=== PATIENT | male | born 1945 | race Caucasian/White ===

== ENCOUNTER 2017-01-15 17:13 | Inpatient (IN) | payer OTHER, MEDICAID ==
[~2017-01-15] VITALS: Ht 185.4 cm; Wt 106.3 kg
[2017-01-15 18:29] VITALS: BP_SYST 143
[2017-01-15] MEDS ORDERED: MV-M1TAB39 PO (19:25)
[2017-01-15] MEDS ORDERED: HYDR-4100 PO (19:25)
[2017-01-15] MEDS ORDERED: VITA-219 PO (19:25)
[2017-01-15] MEDS ORDERED: DICLOFENAC 1% (19:25)
[2017-01-15] MEDS ORDERED: OMEG300C3 PO (19:25)
[2017-01-15] MEDS ORDERED: VITA1CAP PO (19:25)
[2017-01-15] MEDS ORDERED: TRAZ-123 PO (19:25)
[2017-01-15] MEDS ORDERED: SERT50TA12 PO (19:25)
[2017-01-15] MEDS ORDERED: FERR-57 PO (19:25)
[2017-01-15] MEDS ORDERED: VITD2000 PO (19:25)
[2017-01-15] MEDS ORDERED: DIVA500T7 PO (19:25)
[2017-01-15] MEDS ORDERED: MULT PO (19:25)
[2017-01-15] MEDS ORDERED: DICL100G16 TP (19:25)
[2017-01-15] MEDS ORDERED: MEMA5TAB PO (19:25)
[2017-01-15 20:00] VITALS: BP_SYST 141
[2017-01-15 20:12] LABS: BASOPHILS % (AUTO) 0.3 % (0.0-2.0); EOSINOPHILS # (AUTO) 0.1 K/uL (0.0-0.4); EOSINOPHILS % (AUTO) 1.1 % (0.0-4.0); HEMATOCRIT 42.1 % (36-54); HEMOGLOBIN 13.8 g/dL (14.0-18.0); MEAN CORPUSCULAR HEMOGLOBIN 29 pg (27-31); MEAN CORPUSCULAR HGB CONC 33 % (32-36); MEAN CORPUSCULAR VOLUME 89 fL (79.0-98.0); MONOCYTES # (AUTO) 0.7 K/uL (0.0-1.0); MONOCYTES % (AUTO) 12.3 % (1.7-9.3); NEUTROPHILS # (AUTO) 1.5 K/uL (1.8-7.7); NEUTROPHILS % (AUTO) 28.3 % (40.0-70.0); PLATELET COUNT (AUTO) 174 K/uL (130-430); RED BLOOD CELL COUNT(AUTO) 4.72 MIL/uL (4.2-6.2); RED CELL DISTRIBUTION WIDTH 18.2 % (9.0-15.0); WHITE BLOOD COUNT (AUTO) 5.4 K/uL (4.8-10.8)
[2017-01-15 20:24] LABS: LIPASE 109 U/L (73-393); THYROID STIMULATING HORMONE 1.28 uIu/mL (0.36-3.74)
[2017-01-15 20:31] LABS: SODIUM SERUM 147 mmol/L (136-145)
[2017-01-15 20:59] LABS: BILIRUBIN,URINE NEGATIVE (NEGATIVE); BLOOD, URINE NEGATIVE (NEGATIVE); CLARITY/URINE CLEAR (CLEAR); COLOR,URINE YELLOW (YELLOW); GLUCOSE,URINE NEGATIVE (NEGATIVE); KETONES,URINE 1+ (NEGATIVE); LEUKOCYTE ESTERASE ,URINE NEGATIVE (NEGATIVE); NITRITE, URINE NEGATIVE (NEGATIVE); PROTEIN URINE NEGATIVE (NEGATIVE)
[2017-01-15] MEDS ORDERED: DICLOFENAC 1% GEL PO SCH (21:30)
[2017-01-15] MEDS ORDERED: LEVOFLOXACIN 500 MG/D5W 100 ML IV ONE (21:33)
[2017-01-15] MEDS: LEVOFLOXACIN 500 MG/D5W 100 ML IV SCH (22:26)
[2017-01-16] MEDS: D5/0.45 NS 1,000 ML IV SCH ×2 (01:02→17:53)
[2017-01-16 02:54] VITALS: BP_SYST 129
[2017-01-16 08:30] VITALS: BP_SYST 127
[2017-01-16] MEDS: VITAMIN E 1,000 UNIT CAPSULE PO SCH (09:00)
[2017-01-16 12:37] VITALS: BP_SYST 133; BP_SYST 150
[2017-01-16] MEDS: VITAMIN B COMPLEX 1 CAP/TAB PO SCH (13:21)
[2017-01-16] MEDS: MEMANTINE HCL 5 MG TABLET PO SCH (13:21)
[2017-01-16] MEDS: MULTIVITAMINS TAB 1 TABLET PO SCH (13:21)
[2017-01-16] MEDS: SERTRALINE HCL 50 MG TABLET PO SCH (13:21)
[2017-01-16] MEDS: CHOLECALCIFEROL (VITAMIN D3) 2,000 UNIT TABLET PO SCH (13:21)
[2017-01-16] MEDS: FERROUS SULFATE 325 MG TABLET.DR PO SCH (13:21)
[2017-01-16] MEDS: traZODone HCL 50 MG TABLET (DESYREL) PO SCH (13:21)
[2017-01-16] MEDS: HYDROcodone/ACETAMIN 10-325 MG TAB PO SCH ×4 (13:22→21:05)
[2017-01-16] MEDS: DIVALPROEX SODIUM 500 MG TABLET( DEPAKOTE) PO SCH (13:23)
[2017-01-16] MEDS: ENOXAPARIN SODIUM 40 MG/0.4 ML SYRINGE SUBCUT SCH (13:23)
[2017-01-16 16:20] VITALS: BP_SYST 108; BP_SYST 111
[2017-01-16 19:49] VITALS: BP_SYST 138
[2017-01-16] MEDS ORDERED: traZODone HCL 50 MG TABLET (DESYREL) PO ONE (21:45)
[2017-01-16] MEDS: LEVOFLOXACIN 500 MG/D5W 100 ML IV SCH (22:25)
[2017-01-17 00:49] VITALS: BP_SYST 105
[2017-01-17 04:46] VITALS: BP_SYST 97
[2017-01-17 07:35] VITALS: BP_SYST 102
[2017-01-17] MEDS: MEMANTINE HCL 5 MG TABLET PO SCH ×2 (08:38→21:54)
[2017-01-17] MEDS: VITAMIN B COMPLEX 1 CAP/TAB PO SCH (08:38)
[2017-01-17] MEDS: HYDROcodone/ACETAMIN 10-325 MG TAB PO SCH ×4 (08:38→21:56)
[2017-01-17] MEDS: FERROUS SULFATE 325 MG TABLET.DR PO SCH (08:38)
[2017-01-17] MEDS: SERTRALINE HCL 50 MG TABLET PO SCH (08:39)
[2017-01-17] MEDS: DIVALPROEX SODIUM 500 MG TABLET( DEPAKOTE) PO SCH (08:39)
[2017-01-17] MEDS: CHOLECALCIFEROL (VITAMIN D3) 2,000 UNIT TABLET PO SCH (08:39)
[2017-01-17] MEDS: MULTIVITAMINS TAB 1 TABLET PO SCH (08:40)
[2017-01-17] MEDS: ENOXAPARIN SODIUM 40 MG/0.4 ML SYRINGE SUBCUT SCH (08:40)
[2017-01-17] MEDS: traZODone HCL 50 MG TABLET (DESYREL) PO SCH (08:49)
[2017-01-17] MEDS: VITAMIN E 1,000 UNIT CAPSULE PO SCH (09:00)
[2017-01-17 11:06] LABS: INR 1.1 (0.80-1.20); PROTHROMBIN TIME 11.6 SECS (9.5-12.5)
[2017-01-17 11:07] LABS: ALBUMIN 2.8 g/dL (3.4-4.8); BILIRUBIN,DIRECT 0.2 mg/dL (0.0-0.3); TOTAL BILIRUBIN 0.4 mg/dL (0.0-1.0)
[2017-01-17 11:10] LABS: HEPATITIS C VIRUS AB <0.1 s/co ratio (0.0-0.9)
[2017-01-17 12:30] VITALS: BP_SYST 109
[2017-01-17] MEDS: D5/0.45 NS 1,000 ML IV SCH (13:32)
[2017-01-17] MEDS ORDERED: COMMUNICATION ORDER XX ONE (14:30)
[2017-01-17 16:20] VITALS: BP_SYST 124
[2017-01-17 19:40] VITALS: BP_SYST 115
[2017-01-17] MEDS ORDERED: DIVALPROEX SODIUM 500 MG TAB.SR.24H (DEPAKOTE ER) PO ONE (21:00)
[2017-01-17] MEDS: LEVOFLOXACIN 500 MG/D5W 100 ML IV SCH (21:54)
[2017-01-18] VITALS (7 sets, daily range): BP systolic 109–134
[2017-01-18 06:44] LABS: ALBUMIN 2.9 g/dL (3.4-4.8); CALCIUM 8.3 mg/dL (8.4-11.0); CREATININE 0.64 mg/dL (0.55-1.30); POTASSIUM 4.9 mmol/L (3.5-5.1); TOTAL BILIRUBIN 0.6 mg/dL (0.0-1.0)
[2017-01-18] MEDS: D5/0.45 NS 1,000 ML IV SCH ×2 (06:50→21:49)
[2017-01-18 06:58] LABS: BASOPHILS % (AUTO) 0.4 % (0.0-2.0); HEMATOCRIT 38.8 % (36-54); HEMOGLOBIN 13.1 g/dL (14.0-18.0); LYMPHOCYTES # (AUTO) 2.4 K/uL (1.0-5.5); LYMPHOCYTES % (AUTO) 54.9 % (20.5-51.5); MEAN CORPUSCULAR HEMOGLOBIN 30 pg (27-31); MEAN CORPUSCULAR HGB CONC 34 % (32-36); MEAN CORPUSCULAR VOLUME 89 fL (79.0-98.0); MONOCYTES # (AUTO) 0.5 K/uL (0.0-1.0); MONOCYTES % (AUTO) 11.2 % (1.7-9.3); NEUTROPHILS # (AUTO) 1.3 K/uL (1.8-7.7); NEUTROPHILS % (AUTO) 32.5 % (40.0-70.0); PLATELET COUNT (AUTO) 149 K/uL (130-430); RED BLOOD CELL COUNT(AUTO) 4.37 MIL/uL (4.2-6.2); RED CELL DISTRIBUTION WIDTH 17.9 % (9.0-15.0); WHITE BLOOD COUNT (AUTO) 4.2 K/uL (4.8-10.8)
[2017-01-18] MEDS: traZODone HCL 50 MG TABLET (DESYREL) PO SCH (09:00)
[2017-01-18] MEDS: HYDROcodone/ACETAMIN 10-325 MG TAB PO SCH ×4 (09:00→21:48)
[2017-01-18] MEDS: SERTRALINE HCL 50 MG TABLET PO SCH (09:00)
[2017-01-18] MEDS: ENOXAPARIN SODIUM 40 MG/0.4 ML SYRINGE SUBCUT SCH (09:00)
[2017-01-18] MEDS: VITAMIN B COMPLEX 1 CAP/TAB PO SCH (09:00)
[2017-01-18] MEDS: VITAMIN E 1,000 UNIT CAPSULE PO SCH (09:00)
[2017-01-18] MEDS: FERROUS SULFATE 325 MG TABLET.DR PO SCH (09:00)
[2017-01-18] MEDS: MEMANTINE HCL 5 MG TABLET PO SCH ×2 (09:00→21:47)
[2017-01-18] MEDS: MULTIVITAMINS TAB 1 TABLET PO SCH (09:00)
[2017-01-18] MEDS: CHOLECALCIFEROL (VITAMIN D3) 2,000 UNIT TABLET PO SCH (09:00)
[2017-01-18] MEDS ORDERED: DILTIAZEM HCL 25 MG/5 ML VIAL IVP PRN (15:00)
[2017-01-18] MEDS ORDERED: LR 1,000 ML IV SCH (15:01)
[2017-01-18] MEDS ORDERED: HYDROmorphone 1 MG INJ. 1 MG/ML AMPUL IVP PRN (15:15)
[2017-01-18] MEDS ORDERED: HYDROmorphone 2 MG/ML VIAL IVP PRN ×2 (15:15)
[2017-01-18] MEDS ORDERED: MEPERIDINE HCL/PF 25 MG/ML DISP.SYRIN IVP PRN (15:15)
[2017-01-18] MEDS ORDERED: HYDROmorphone 2 MG/ML VIAL ONE (15:17)
[2017-01-18] MEDS ORDERED: fentaNYL CITRATE 250 MCG/5 ML AMP IV ONE (18:47)
[2017-01-18] MEDS ORDERED: SEVOFLURANE 15 MIN GAS INH ONE (18:47)
[2017-01-18] MEDS ORDERED: PROPOFOL 200MG/ 20ML VIAL (DIPRIVAN) IV ONE (18:47)
[2017-01-18] MEDS ORDERED: LR 1,000 ML IV.SOLN IV ONE (18:47)
[2017-01-18] MEDS ORDERED: DEXAMETHASONE SOD PHOSPHATE 4 MG/ML VIAL IVP ONE (18:47)
[2017-01-18] MEDS ORDERED: fentaNYL CITRATE/PF 100 MCG/2 ML AMP IVP ONE (18:47)
[2017-01-18] MEDS ORDERED: ONDANSETRON HCL 4 MG/2 ML VIAL IVP ONE (18:47)
[2017-01-18] MEDS ORDERED: NS IRRIG SOLN 1000 ML IR ONE (18:47)
[2017-01-18] MEDS ORDERED: MIDAZOLAM HCL 5 MG/ML VIAL (VERSED) IV ONE (18:47)
[2017-01-18] MEDS ORDERED: ROCURONIUM BROMIDE 10 MG/ML (ZEMURON) IV ONE (18:47)
[2017-01-18] MEDS ORDERED: KETOROLAC TROMETHAMINE 30 MG VIAL IVP ONE (18:47)
[2017-01-18] MEDS ORDERED: CEFAZOLIN 2 GM IVPB PREMIX 50 ML IV ONE (18:47)
[2017-01-18] MEDS: DIVALPROEX SODIUM 500 MG TAB.SR.24H (DEPAKOTE ER) PO SCH (21:48)
[2017-01-18] MEDS ORDERED: traZODone HCL 50 MG TABLET (DESYREL) PO ONE (22:15)
[2017-01-18] MEDS: LEVOFLOXACIN 500 MG/D5W 100 ML IV SCH (23:52)
[2017-01-19 00:24] LABS: HEMOGLOBIN A1C 5.4 % (4.8-5.6)
[2017-01-19 01:00] VITALS: BP_SYST 108
[2017-01-19 06:27] LABS: ALBUMIN 2.7 g/dL (3.4-4.8); CREATININE 0.81 mg/dL (0.55-1.30); HEMATOCRIT 38.3 % (36-54); MEAN CORPUSCULAR HEMOGLOBIN 30 pg (27-31); MEAN CORPUSCULAR HGB CONC 34 % (32-36); MEAN CORPUSCULAR VOLUME 89 fL (79.0-98.0); PLATELET COUNT (AUTO) 148 K/uL (130-430); POTASSIUM 3.6 mmol/L (3.5-5.1); RED BLOOD CELL COUNT(AUTO) 4.29 MIL/uL (4.2-6.2); TOTAL BILIRUBIN 0.8 mg/dL (0.0-1.0)
[2017-01-19 07:15] LABS: WHITE BLOOD COUNT (AUTO) 7.7 K/uL (4.8-10.8)
[2017-01-19 07:54] VITALS: BP_SYST 121
[2017-01-19] MEDS: MULTIVITAMINS TAB 1 TABLET PO SCH (08:36)
[2017-01-19] MEDS: VITAMIN E 1,000 UNIT CAPSULE PO SCH (08:36)
[2017-01-19] MEDS: MEMANTINE HCL 5 MG TABLET PO SCH ×2 (08:36→20:58)
[2017-01-19] MEDS: CHOLECALCIFEROL (VITAMIN D3) 2,000 UNIT TABLET PO SCH (08:36)
[2017-01-19] MEDS: ENOXAPARIN SODIUM 40 MG/0.4 ML SYRINGE SUBCUT SCH (08:37)
[2017-01-19] MEDS: FERROUS SULFATE 325 MG TABLET.DR PO SCH (08:37)
[2017-01-19] MEDS: HYDROcodone/ACETAMIN 10-325 MG TAB PO SCH ×4 (08:37→20:58)
[2017-01-19] MEDS: SERTRALINE HCL 50 MG TABLET PO SCH (08:38)
[2017-01-19] MEDS: VITAMIN B COMPLEX 1 CAP/TAB PO SCH (08:38)
[2017-01-19 10:33] LABS: BAND % (MANUAL) 20 % (0-6); LYMPHOCYTES % (MANUAL) 7 % (20-46)
[2017-01-19 10:34] LABS: ATYPICAL LYMPHOCYTES % 4 % (0-0); BASOPHILS % (MANUAL) 0 % (0-2); EOSINOPHILS % (MANUAL) 0 % (0-7); MONOCYTES % (MANUAL) 6 % (0-11)
[2017-01-19 14:09] VITALS: BP_SYST 83
[2017-01-19] MEDS: D5/0.45 NS 1,000 ML IV SCH ×2 (14:32→16:31)
[2017-01-19 16:20] VITALS: BP_SYST 111
[2017-01-19 19:45] VITALS: BP_SYST 113
[2017-01-19] MEDS: DIVALPROEX SODIUM 500 MG TAB.SR.24H (DEPAKOTE ER) PO SCH (20:57)
[2017-01-19] MEDS ORDERED: traZODone HCL 50 MG TABLET (DESYREL) PO SCH (21:00)
[2017-01-19 23:32] VITALS: BP_SYST 122
[2017-01-20] MEDS: LEVOFLOXACIN 500 MG/D5W 100 ML IV SCH (00:03)
[2017-01-20 04:01] VITALS: BP_SYST 119
[2017-01-20 08:00] VITALS: BP_SYST 125
[2017-01-20] MEDS: VITAMIN B COMPLEX 1 CAP/TAB PO SCH (08:19)
[2017-01-20] MEDS: ENOXAPARIN SODIUM 40 MG/0.4 ML SYRINGE SUBCUT SCH (08:19)
[2017-01-20] MEDS: CHOLECALCIFEROL (VITAMIN D3) 2,000 UNIT TABLET PO SCH (08:19)
[2017-01-20] MEDS: MEMANTINE HCL 5 MG TABLET PO SCH (08:19)
[2017-01-20] MEDS: MULTIVITAMINS TAB 1 TABLET PO SCH (08:20)
[2017-01-20] MEDS: SERTRALINE HCL 50 MG TABLET PO SCH (08:20)
[2017-01-20] MEDS: FERROUS SULFATE 325 MG TABLET.DR PO SCH (08:20)
[2017-01-20] MEDS: HYDROcodone/ACETAMIN 10-325 MG TAB PO SCH ×2 (08:21→12:57)
[2017-01-20] MEDS: VITAMIN E 1,000 UNIT CAPSULE PO SCH (09:00)
[2017-01-20 12:29] VITALS: BP_SYST 102
[2017-01-20] MEDS: D5/0.45 NS 1,000 ML IV SCH (13:00)
[2017-01-20 15:28] VITALS: BP_SYST 102
== END 2017-01-20 17:10 | disposition home or self-care (01) | DRG 418 ==
LOC: SMU 17:34 → STU 01-18 16:30
PROVIDERS: ADMIT Internal Medicine Infectious Disease; ATTEND Internal Medicine Infectious Disease
PROC: 0FT44ZZ Resection of Gallbladder, Percutaneous Endoscopic Approach (ICD-10-PCS; principal; 2017-01-19)
DX: K80.62 Calculus of gallbladder and bile duct with acute cholecystitis without obstruction (principal); E44.0 Moderate protein-calorie malnutrition; F03.90 Unspecified dementia, unspecified severity, without behavioral disturbance, psychotic disturbance, mood disturbance, and anxiety; E66.01 Morbid (severe) obesity due to excess calories; E29.1 Testicular hypofunction; G89.29 Other chronic pain; I89.0 Lymphedema, not elsewhere classified; M19.90 Unspecified osteoarthritis, unspecified site; M48.00 Spinal stenosis, site unspecified; M81.0 Age-related osteoporosis without current pathological fracture; E04.9 Nontoxic goiter, unspecified; I10 Essential (primary) hypertension; F31.9 Bipolar disorder, unspecified; M54.40 Lumbago with sciatica, unspecified side; M54.9 Dorsalgia, unspecified; G47.00 Insomnia, unspecified; Z80.3 Family history of malignant neoplasm of breast; Z90.49 Acquired absence of other specified parts of digestive tract; Z98.84 Bariatric surgery status; Z68.30 Body mass index [BMI] 30.0-30.9, adult
CPT/HCPCS: 36415; 74181; 76700-TC; 78226; 80053; 80076; 81003; 83036; 83690-TC; 84295-TC; 84443-TC; 84484; 85007; 85025; 85027; 85610-TC; 86592; 86803; 87040-TC; 87070; 87070-TC; 87075-TC; 87081; 87086; 87186-TC; 88304; 93005; 94010; 94760; 97116-GP; A9537; C1727; J0690; J1100; J1170; J1650; J1885; J1956; J2250; J2405; J2704; J3010; J7120

== ENCOUNTER 2017-03-17 17:06 | Inpatient (IN) | payer OTHER, MEDICAID ==
[~2017-03-17] VITALS: Ht 182.9 cm; Wt 111.6 kg
[~2017-03-17 17:06] MED LIST: DICL100G16 TP; DICLOFENAC 1%; DIVA500T7 PO; FERR-57 PO; HYDR-4100 PO; MEMA5TAB PO; MULT PO; MV-M1TAB39 PO; OMEG300C3 PO; SERT50TA12 PO; TRAZ-123 PO; VITA-219 PO; VITA1CAP PO; VITD2000 PO
[2017-03-17 17:52] VITALS: BP_SYST 146
[2017-03-17] MEDS ORDERED: COMMUNICATION ORDER XX ONE (18:45)
[2017-03-17] MEDS ORDERED: HYDROcodone/ACETAMIN 10-325 MG TAB PO PRN (19:00)
[2017-03-17 19:26] LABS: HEMATOCRIT 32.1 % (36-54); HEMOGLOBIN 10.7 g/dL (14.0-18.0); MEAN CORPUSCULAR HEMOGLOBIN 29 pg (27-31); MEAN CORPUSCULAR HGB CONC 33 % (32-36); MEAN CORPUSCULAR VOLUME 88 fL (79.0-98.0); PLATELET COUNT (AUTO) 342 K/uL (130-430); RED BLOOD CELL COUNT(AUTO) 3.64 MIL/uL (4.2-6.2); RED CELL DISTRIBUTION WIDTH 15.2 % (9.0-15.0); WHITE BLOOD COUNT (AUTO) 6.9 K/uL (4.8-10.8)
[2017-03-17] MEDS ORDERED: [UNRECOGNIZED DRUG - OTHER] IV ONE (19:30)
[2017-03-17] MEDS ORDERED: VANCOMYCIN HCL 1,500 MG in NS 250 ML IV ONE ×2 (19:30→22:00)
[2017-03-17] MEDS ORDERED: DEXTROSE IV ONE (19:30)
[2017-03-17] MEDS ORDERED: PIPERACILLIN IV ONE (19:30)
[2017-03-17] MEDS ORDERED: TAZOBACTAM IV ONE (19:30)
[2017-03-17 19:44] LABS: CALCIUM 8.1 mg/dL (8.4-11.0); CREATININE 1.03 mg/dL (0.55-1.30); POTASSIUM 3.9 mmol/L (3.5-5.1); TOTAL BILIRUBIN 0.4 mg/dL (0.0-1.0)
[2017-03-17 20:00] VITALS: BP_SYST 99
[2017-03-17 20:06] LABS: BAND % (MANUAL) 6 % (0-6); LYMPHOCYTES % (MANUAL) 27 % (20-46); MONOCYTES % (MANUAL) 21 % (0-11)
[2017-03-17 20:07] LABS: BASOPHILS % (MANUAL) 0 % (0-2); EOSINOPHILS % (MANUAL) 0 % (0-7)
[2017-03-17] MEDS: [UNRECOGNIZED DRUG - OTHER] IV SCH (21:00)
[2017-03-17] MEDS: TAZOBACTAM IV SCH (21:00)
[2017-03-17] MEDS: PIPERACILLIN IV SCH (21:00)
[2017-03-17] MEDS: DEXTROSE IV SCH (21:00)
[2017-03-17] MEDS ORDERED: PIPERACILLIN/TAZOBACTAM 4.5 GM/VIAL (ZOSYN) IV ONE (21:42)
[2017-03-17] MEDS ORDERED: VANCOMYCIN HCL 1000 MG/VIAL IV ONE (21:43)
[2017-03-18] VITALS (7 sets, daily range): BP systolic 108–146
[2017-03-18] MEDS: DEXTROSE IV SCH ×4 (02:56→21:11)
[2017-03-18] MEDS: [UNRECOGNIZED DRUG - OTHER] IV SCH ×4 (02:56→21:11)
[2017-03-18] MEDS: PIPERACILLIN IV SCH ×4 (02:56→21:11)
[2017-03-18] MEDS: TAZOBACTAM IV SCH ×4 (02:56→21:11)
[2017-03-18] MEDS: VANCOMYCIN HCL 1,000 MG in NS 250 ML IV SCH ×3 (05:06→21:14)
[2017-03-18 05:23] LABS: BILIRUBIN,URINE NEGATIVE (NEGATIVE); BLOOD, URINE NEGATIVE (NEGATIVE); CLARITY/URINE CLEAR (CLEAR); COLOR,URINE YELLOW (YELLOW); GLUCOSE,URINE NEGATIVE (NEGATIVE); KETONES,URINE NEGATIVE (NEGATIVE); LEUKOCYTE ESTERASE ,URINE NEGATIVE (NEGATIVE); NITRITE, URINE NEGATIVE (NEGATIVE); PROTEIN URINE NEGATIVE (NEGATIVE); UROBILINOGEN,URINE 0.2 (0.2-1.0)
[2017-03-18] MEDS ORDERED: VANCOMYCIN HCL 1,000 MG in NS 250 ML IV SCH (06:00)
[2017-03-18] MEDS: VITAMIN E 1,000 UNIT CAPSULE PO SCH (09:00)
[2017-03-18] MEDS: CHOLECALCIFEROL (VITAMIN D3) 2,000 UNIT TABLET PO SCH (09:22)
[2017-03-18] MEDS: VITAMIN B COMPLEX 1 CAP/TAB PO SCH (09:22)
[2017-03-18] MEDS: BETA-CAROTENE W-C & E/ZN/CU TABLET PO SCH (09:22)
[2017-03-18] MEDS: OMEGA-3/DHA/EPA/FISH OIL 1 GM CAPSULE PO SCH (09:22)
[2017-03-18] MEDS: FERROUS SULFATE 325 MG TABLET.DR PO SCH (09:22)
[2017-03-18] MEDS: MEMANTINE HCL 5 MG TABLET PO SCH (09:22)
[2017-03-18] MEDS: SERTRALINE HCL 50 MG TABLET PO SCH (09:23)
[2017-03-18] MEDS: MULTIVITAMINS TAB 1 TABLET PO SCH (09:23)
[2017-03-18] MEDS ORDERED: IOHEXOL 100 ML IV ONE (11:19)
[2017-03-18] MEDS: DIVALPROEX SODIUM 500 MG TAB.SR.24H (DEPAKOTE ER) PO SCH (21:00)
[2017-03-19] VITALS (7 sets, daily range): BP systolic 105–152
[2017-03-19] MEDS: TAZOBACTAM IV SCH ×4 (03:10→21:38)
[2017-03-19] MEDS: [UNRECOGNIZED DRUG - OTHER] IV SCH ×4 (03:10→21:38)
[2017-03-19] MEDS: DEXTROSE IV SCH ×4 (03:10→21:38)
[2017-03-19] MEDS: PIPERACILLIN IV SCH ×4 (03:10→21:38)
[2017-03-19] MEDS: VANCOMYCIN HCL 1,000 MG in NS 250 ML IV SCH ×3 (05:36→22:55)
[2017-03-19 07:13] LABS: BASOPHILS % (AUTO) 0.7 % (0.0-2.0); EOSINOPHILS # (AUTO) 0.1 K/uL (0.0-0.4); EOSINOPHILS % (AUTO) 2.1 % (0.0-4.0); HEMATOCRIT 33.4 % (36-54); HEMOGLOBIN 11.1 g/dL (14.0-18.0); LYMPHOCYTES # (AUTO) 2.3 K/uL (1.0-5.5); LYMPHOCYTES % (AUTO) 33.3 % (20.5-51.5); MEAN CORPUSCULAR HEMOGLOBIN 30 pg (27-31); MEAN CORPUSCULAR HGB CONC 33 % (32-36); MEAN CORPUSCULAR VOLUME 90 fL (79.0-98.0); MONOCYTES # (AUTO) 1.4 K/uL (0.0-1.0); MONOCYTES % (AUTO) 19.6 % (1.7-9.3); NEUTROPHILS # (AUTO) 3.2 K/uL (1.8-7.7); NEUTROPHILS % (AUTO) 44.3 % (40.0-70.0); PLATELET COUNT (AUTO) 344 K/uL (130-430); RED BLOOD CELL COUNT(AUTO) 3.72 MIL/uL (4.2-6.2); RED CELL DISTRIBUTION WIDTH 15.1 % (9.0-15.0); WHITE BLOOD COUNT (AUTO) 6.9 K/uL (4.8-10.8)
[2017-03-19 07:49] LABS: ALBUMIN 1.7 g/dL (3.4-4.8); CREATININE 0.85 mg/dL (0.55-1.30); FREE T4 (FREE THYROXINE) 0.7 ng/dL (0.6-1.6); POTASSIUM 3.7 mmol/L (3.5-5.1); THYROID STIMULATING HORMONE 1.46 uIu/mL (0.34-4.82); TOTAL BILIRUBIN 0.4 mg/dL (0.0-1.0)
[2017-03-19] MEDS: DIVALPROEX SODIUM 500 MG TAB.SR.24H (DEPAKOTE ER) PO SCH (08:58)
[2017-03-19] MEDS: OMEGA-3/DHA/EPA/FISH OIL 1 GM CAPSULE PO SCH (08:58)
[2017-03-19] MEDS: SERTRALINE HCL 50 MG TABLET PO SCH (08:58)
[2017-03-19] MEDS: BETA-CAROTENE W-C & E/ZN/CU TABLET PO SCH (08:58)
[2017-03-19] MEDS: MEMANTINE HCL 5 MG TABLET PO SCH (08:58)
[2017-03-19] MEDS: MULTIVITAMINS TAB 1 TABLET PO SCH (08:59)
[2017-03-19] MEDS: FERROUS SULFATE 325 MG TABLET.DR PO SCH (08:59)
[2017-03-19] MEDS: CHOLECALCIFEROL (VITAMIN D3) 2,000 UNIT TABLET PO SCH (08:59)
[2017-03-19] MEDS: VITAMIN E 1,000 UNIT CAPSULE PO SCH (09:00)
[2017-03-19] MEDS: VITAMIN B COMPLEX 1 CAP/TAB PO SCH (09:12)
[2017-03-19 10:21] LABS: INR 1.1 (0.80-1.20); PROTHROMBIN TIME 11.1 SECS (9.5-12.5)
[2017-03-20 00:15] VITALS: BP_SYST 131
[2017-03-20] MEDS: PIPERACILLIN IV SCH ×4 (02:57→21:01)
[2017-03-20] MEDS: TAZOBACTAM IV SCH ×4 (02:57→21:01)
[2017-03-20] MEDS: DEXTROSE IV SCH ×4 (02:57→21:01)
[2017-03-20] MEDS: [UNRECOGNIZED DRUG - OTHER] IV SCH ×4 (02:57→21:01)
[2017-03-20 04:16] VITALS: BP_SYST 149
[2017-03-20] MEDS: VANCOMYCIN HCL 1,000 MG in NS 250 ML IV SCH ×3 (06:01→22:00)
[2017-03-20 07:19] LABS: BASOPHILS % (AUTO) 0.5 % (0.0-2.0); EOSINOPHILS # (AUTO) 0.1 K/uL (0.0-0.4); EOSINOPHILS % (AUTO) 1.5 % (0.0-4.0); HEMATOCRIT 34.3 % (36-54); HEMOGLOBIN 11.9 g/dL (14.0-18.0); LYMPHOCYTES # (AUTO) 2.6 K/uL (1.0-5.5); LYMPHOCYTES % (AUTO) 32.5 % (20.5-51.5); MEAN CORPUSCULAR HEMOGLOBIN 30 pg (27-31); MEAN CORPUSCULAR HGB CONC 35 % (32-36); MEAN CORPUSCULAR VOLUME 87 fL (79.0-98.0); MONOCYTES # (AUTO) 1.1 K/uL (0.0-1.0); MONOCYTES % (AUTO) 14.4 % (1.7-9.3); NEUTROPHILS # (AUTO) 4.1 K/uL (1.8-7.7); NEUTROPHILS % (AUTO) 51.1 % (40.0-70.0); PLATELET COUNT (AUTO) 422 K/uL (130-430); RED BLOOD CELL COUNT(AUTO) 3.96 MIL/uL (4.2-6.2); RED CELL DISTRIBUTION WIDTH 15.2 % (9.0-15.0); WHITE BLOOD COUNT (AUTO) 7.9 K/uL (4.8-10.8)
[2017-03-20 07:24] LABS: ALBUMIN 1.9 g/dL (3.4-4.8); CREATININE 0.64 mg/dL (0.55-1.30); TOTAL BILIRUBIN 0.5 mg/dL (0.0-1.0)
[2017-03-20 07:48] LABS: POTASSIUM 2.8 mmol/L (3.5-5.1)
[2017-03-20] MEDS ORDERED: POTASSIUM CHLORIDE 40 MEQ in NS 250 ML IV ONE (08:30)
[2017-03-20] MEDS: VITAMIN E 1,000 UNIT CAPSULE PO SCH (09:00)
[2017-03-20 09:05] VITALS: BP_SYST 137
[2017-03-20] MEDS: DIVALPROEX SODIUM 500 MG TAB.SR.24H (DEPAKOTE ER) PO SCH (11:01)
[2017-03-20] MEDS: CHOLECALCIFEROL (VITAMIN D3) 2,000 UNIT TABLET PO SCH (11:01)
[2017-03-20] MEDS: BETA-CAROTENE W-C & E/ZN/CU TABLET PO SCH (11:01)
[2017-03-20] MEDS: OMEGA-3/DHA/EPA/FISH OIL 1 GM CAPSULE PO SCH (11:02)
[2017-03-20] MEDS: FERROUS SULFATE 325 MG TABLET.DR PO SCH (11:02)
[2017-03-20] MEDS: MULTIVITAMINS TAB 1 TABLET PO SCH (11:02)
[2017-03-20] MEDS: MEMANTINE HCL 5 MG TABLET PO SCH (11:02)
[2017-03-20] MEDS: SERTRALINE HCL 50 MG TABLET PO SCH (11:03)
[2017-03-20] MEDS: VITAMIN B COMPLEX 1 CAP/TAB PO SCH (11:25)
[2017-03-20 12:17] VITALS: BP_SYST 130
[2017-03-20 15:36] VITALS: BP_SYST 149
[2017-03-20 20:00] VITALS: BP_SYST 142
[2017-03-21 00:40] VITALS: BP_SYST 128
[2017-03-21] MEDS ORDERED: metroNIDAZOLE 500 mg/NS 100 ML IV ONE (02:04)
[2017-03-21] MEDS: TAZOBACTAM IV SCH ×4 (02:39→21:06)
[2017-03-21] MEDS: DEXTROSE IV SCH ×4 (02:39→21:06)
[2017-03-21] MEDS: PIPERACILLIN IV SCH ×4 (02:39→21:06)
[2017-03-21] MEDS: [UNRECOGNIZED DRUG - OTHER] IV SCH ×4 (02:39→21:06)
[2017-03-21 04:30] VITALS: BP_SYST 130
[2017-03-21] MEDS: metroNIDAZOLE 500 mg/NS 100 ML IV SCH ×3 (05:00→22:14)
[2017-03-21] MEDS: VANCOMYCIN HCL 1,000 MG in NS 250 ML IV SCH (06:01)
[2017-03-21 06:58] LABS: BASOPHILS % (AUTO) 0.6 % (0.0-2.0); EOSINOPHILS # (AUTO) 0.1 K/uL (0.0-0.4); HEMATOCRIT 36.9 % (36-54); HEMOGLOBIN 12.3 g/dL (14.0-18.0); LYMPHOCYTES # (AUTO) 2.1 K/uL (1.0-5.5); LYMPHOCYTES % (AUTO) 29.1 % (20.5-51.5); MEAN CORPUSCULAR HEMOGLOBIN 29 pg (27-31); MEAN CORPUSCULAR HGB CONC 33 % (32-36); MEAN CORPUSCULAR VOLUME 88 fL (79.0-98.0); MONOCYTES # (AUTO) 0.9 K/uL (0.0-1.0); MONOCYTES % (AUTO) 12.8 % (1.7-9.3); NEUTROPHILS # (AUTO) 4.3 K/uL (1.8-7.7); NEUTROPHILS % (AUTO) 55.5 % (40.0-70.0); PLATELET COUNT (AUTO) 495 K/uL (130-430); RED BLOOD CELL COUNT(AUTO) 4.18 MIL/uL (4.2-6.2); RED CELL DISTRIBUTION WIDTH 15.1 % (9.0-15.0); WHITE BLOOD COUNT (AUTO) 7.4 K/uL (4.8-10.8)
[2017-03-21 07:11] LABS: CALCIUM 8.4 mg/dL (8.4-11.0); CREATININE 0.73 mg/dL (0.55-1.30); POTASSIUM 3.4 mmol/L (3.5-5.1)
[2017-03-21 08:11] VITALS: BP_SYST 139
[2017-03-21] MEDS: OMEGA-3/DHA/EPA/FISH OIL 1 GM CAPSULE PO SCH (08:38)
[2017-03-21] MEDS: BETA-CAROTENE W-C & E/ZN/CU TABLET PO SCH (08:38)
[2017-03-21] MEDS: DIVALPROEX SODIUM 500 MG TAB.SR.24H (DEPAKOTE ER) PO SCH (08:38)
[2017-03-21] MEDS: CHOLECALCIFEROL (VITAMIN D3) 2,000 UNIT TABLET PO SCH (08:39)
[2017-03-21] MEDS: VITAMIN B COMPLEX 1 CAP/TAB PO SCH (08:39)
[2017-03-21] MEDS: FERROUS SULFATE 325 MG TABLET.DR PO SCH (08:39)
[2017-03-21] MEDS: SERTRALINE HCL 50 MG TABLET PO SCH (08:39)
[2017-03-21] MEDS: MEMANTINE HCL 5 MG TABLET PO SCH (08:40)
[2017-03-21] MEDS: MULTIVITAMINS TAB 1 TABLET PO SCH (08:40)
[2017-03-21] MEDS: VITAMIN E 1,000 UNIT CAPSULE PO SCH (09:00)
[2017-03-21 11:26] VITALS: BP_SYST 134
[2017-03-21] MEDS ORDERED: POTASSIUM CHLORIDE 20 MEQ TAB.PRT.SR PO ONE (13:00)
[2017-03-21 15:16] VITALS: BP_SYST 132
[2017-03-21] MEDS: VANCOMYCIN HCL 1,500 MG in NS 250 ML IV SCH (16:48)
[2017-03-21 20:00] VITALS: BP_SYST 108
[2017-03-22] VITALS (15 sets, daily range): BP systolic 114–151
[2017-03-22] MEDS: TAZOBACTAM IV SCH ×4 (02:51→21:30)
[2017-03-22] MEDS: [UNRECOGNIZED DRUG - OTHER] IV SCH ×4 (02:51→21:30)
[2017-03-22] MEDS: PIPERACILLIN IV SCH ×4 (02:51→21:30)
[2017-03-22] MEDS: DEXTROSE IV SCH ×4 (02:51→21:30)
[2017-03-22] MEDS: VANCOMYCIN HCL 1,500 MG in NS 250 ML IV SCH ×2 (04:02→19:48)
[2017-03-22] MEDS: metroNIDAZOLE 500 mg/NS 100 ML IV SCH ×3 (05:59→21:31)
[2017-03-22 07:05] LABS: BASOPHILS % (AUTO) 0.4 % (0.0-2.0); EOSINOPHILS # (AUTO) 0.1 K/uL (0.0-0.4); EOSINOPHILS % (AUTO) 1.3 % (0.0-4.0); HEMATOCRIT 39.9 % (36-54); HEMOGLOBIN 12.9 g/dL (14.0-18.0); LYMPHOCYTES # (AUTO) 2.9 K/uL (1.0-5.5); LYMPHOCYTES % (AUTO) 30.3 % (20.5-51.5); MEAN CORPUSCULAR HEMOGLOBIN 29 pg (27-31); MEAN CORPUSCULAR HGB CONC 32 % (32-36); MEAN CORPUSCULAR VOLUME 88 fL (79.0-98.0); MONOCYTES # (AUTO) 1.3 K/uL (0.0-1.0); MONOCYTES % (AUTO) 13.6 % (1.7-9.3); NEUTROPHILS # (AUTO) 5.4 K/uL (1.8-7.7); NEUTROPHILS % (AUTO) 54.4 % (40.0-70.0); PLATELET COUNT (AUTO) 625 K/uL (130-430); RED BLOOD CELL COUNT(AUTO) 4.52 MIL/uL (4.2-6.2); RED CELL DISTRIBUTION WIDTH 15.2 % (9.0-15.0); WHITE BLOOD COUNT (AUTO) 9.7 K/uL (4.8-10.8)
[2017-03-22 07:23] LABS: CALCIUM 8.7 mg/dL (8.4-11.0); CREATININE 1.31 mg/dL (0.55-1.30); POTASSIUM 3.7 mmol/L (3.5-5.1)
[2017-03-22] MEDS: DIVALPROEX SODIUM 500 MG TAB.SR.24H (DEPAKOTE ER) PO SCH (08:04)
[2017-03-22] MEDS: FERROUS SULFATE 325 MG TABLET.DR PO SCH (08:04)
[2017-03-22] MEDS: BETA-CAROTENE W-C & E/ZN/CU TABLET PO SCH (08:05)
[2017-03-22] MEDS: OMEGA-3/DHA/EPA/FISH OIL 1 GM CAPSULE PO SCH (08:05)
[2017-03-22] MEDS: MEMANTINE HCL 5 MG TABLET PO SCH (08:05)
[2017-03-22] MEDS: VITAMIN E 1,000 UNIT CAPSULE PO SCH (08:05)
[2017-03-22] MEDS: VITAMIN B COMPLEX 1 CAP/TAB PO SCH (08:05)
[2017-03-22] MEDS: MULTIVITAMINS TAB 1 TABLET PO SCH (08:05)
[2017-03-22] MEDS: CHOLECALCIFEROL (VITAMIN D3) 2,000 UNIT TABLET PO SCH (08:05)
[2017-03-22] MEDS: SERTRALINE HCL 50 MG TABLET PO SCH (08:05)
[2017-03-22] MEDS ORDERED: LR 1,000 ML IV.SOLN IV ONE (12:00)
[2017-03-22] MEDS ORDERED: MIDAZOLAM HCL 5 MG/5 ML VIAL IVP ONE (12:00)
[2017-03-22] MEDS ORDERED: NEOSTIGMINE METHYLSULFATE 1 MG/ML, 10 ML VIAL IVP ONE (12:00)
[2017-03-22] MEDS ORDERED: ONDANSETRON HCL 4 MG/2 ML VIAL IVP ONE (12:00)
[2017-03-22] MEDS ORDERED: NS IRRIG SOLN 1000 ML IR ONE (12:00)
[2017-03-22] MEDS ORDERED: SEVOFLURANE 15 MIN GAS INH ONE (12:00)
[2017-03-22] MEDS ORDERED: GLYCOPYRROLATE 0.2 MG/ML VIAL IJ ONE (12:00)
[2017-03-22] MEDS ORDERED: TALC IX ONE (12:00)
[2017-03-22] MEDS ORDERED: ROCURONIUM BROMIDE 10 MG/ML (ZEMURON) IV ONE (12:00)
[2017-03-22] MEDS ORDERED: BUPIVACAINE LIPOSOME/PF 266 MG/20 ML VIAL INFIL ONE ×2 (12:00→13:41)
[2017-03-22] MEDS ORDERED: fentaNYL CITRATE/PF 100 MCG/2 ML AMP IVP ONE (12:00)
[2017-03-22] MEDS ORDERED: PROPOFOL 200MG/ 20ML VIAL (DIPRIVAN) IV ONE (12:00)
[2017-03-22] MEDS ORDERED: LR 1,000 ML IV SCH (13:13)
[2017-03-22] MEDS ORDERED: METOCLOPRAMIDE HCL 10 MG/2 ML VIAL IVP PRN (13:15)
[2017-03-22] MEDS ORDERED: MORPHINE 4 MG/ML INJ. SYRINGE IVP PRN ×3 (13:15)
[2017-03-22] MEDS ORDERED: MORPHINE 2 MG/ML INJ. SYRINGE IVP PRN (16:00)
[2017-03-22] MEDS ORDERED: PANTOPRAZOLE SODIUM 40 MG/VIAL (PROTONIX) IVP ONE (16:00)
[2017-03-22] MEDS ORDERED: LORazepam 2 MG/ML VIAL IVP PRN (16:00)
[2017-03-22] MEDS ORDERED: ALBUTEROL SULFATE 0.083% 2.5 MG/3 ML VIAL.NEB INH PRN (16:00)
[2017-03-22] MEDS ORDERED: IPRATROPIUM BROM 0.5 MG/2.5 ML VIAL.NEB (ATROVENT) INH PRN (16:00)
[2017-03-22] MEDS ORDERED: LORazepam 2 MG/ML VIAL ONE (16:14)
[2017-03-22] MEDS: KCL 20 mEq in 0.45% NS 1000 mL 1,000 ML IV SCH (17:19)
[2017-03-22] MEDS: IPRATROPIUM BROM 0.5 MG/2.5 ML VIAL.NEB (ATROVENT) INH SCH (19:39)
[2017-03-22] MEDS: ALBUTEROL SULFATE 0.083% 2.5 MG/3 ML VIAL.NEB INH SCH (19:39)
[2017-03-22] MEDS ORDERED: COMMUNICATION ORDER XX ONE (20:15)
[2017-03-23] VITALS (28 sets, daily range): BP systolic 85–168
[2017-03-23] MEDS: ALBUTEROL SULFATE 0.083% 2.5 MG/3 ML VIAL.NEB INH SCH ×4 (00:57→19:45)
[2017-03-23] MEDS: IPRATROPIUM BROM 0.5 MG/2.5 ML VIAL.NEB (ATROVENT) INH SCH ×4 (00:58→19:45)
[2017-03-23] MEDS: PIPERACILLIN IV SCH ×4 (03:14→20:14)
[2017-03-23] MEDS: [UNRECOGNIZED DRUG - OTHER] IV SCH ×4 (03:14→20:14)
[2017-03-23] MEDS: KCL 20 mEq in 0.45% NS 1000 mL 1,000 ML IV SCH ×2 (03:14→18:15)
[2017-03-23] MEDS: TAZOBACTAM IV SCH ×4 (03:14→20:14)
[2017-03-23] MEDS: DEXTROSE IV SCH ×4 (03:14→20:14)
[2017-03-23] MEDS: VANCOMYCIN HCL 1,500 MG in NS 250 ML IV SCH ×2 (04:00→19:38)
[2017-03-23] MEDS: metroNIDAZOLE 500 mg/NS 100 ML IV SCH ×3 (05:31→21:00)
[2017-03-23 06:35] LABS: BASOPHILS % (AUTO) 0.2 % (0.0-2.0); EOSINOPHILS % (AUTO) 0.1 % (0.0-4.0); HEMATOCRIT 33.5 % (36-54); HEMOGLOBIN 11.1 g/dL (14.0-18.0); LYMPHOCYTES # (AUTO) 1.6 K/uL (1.0-5.5); LYMPHOCYTES % (AUTO) 10.2 % (20.5-51.5); MEAN CORPUSCULAR HEMOGLOBIN 29 pg (27-31); MEAN CORPUSCULAR HGB CONC 33 % (32-36); MEAN CORPUSCULAR VOLUME 89 fL (79.0-98.0); MONOCYTES # (AUTO) 1.7 K/uL (0.0-1.0); MONOCYTES % (AUTO) 10.4 % (1.7-9.3); NEUTROPHILS # (AUTO) 12.8 K/uL (1.8-7.7); PLATELET COUNT (AUTO) 544 K/uL (130-430); RED BLOOD CELL COUNT(AUTO) 3.77 MIL/uL (4.2-6.2); RED CELL DISTRIBUTION WIDTH 15.1 % (9.0-15.0); WHITE BLOOD COUNT (AUTO) 16.1 K/uL (4.8-10.8)
[2017-03-23 06:46] LABS: ALBUMIN 1.6 g/dL (3.4-4.8); CALCIUM 7.6 mg/dL (8.4-11.0); CREATININE 1.25 mg/dL (0.55-1.30); TOTAL BILIRUBIN 0.5 mg/dL (0.0-1.0)
[2017-03-23 06:55] LABS: POTASSIUM 2.9 mmol/L (3.5-5.1)
[2017-03-23 08:22] LABS: NEUTROPHILS % (AUTO) 79.1 % (40.0-70.0)
[2017-03-23] MEDS: FERROUS SULFATE 325 MG TABLET.DR PO SCH (08:33)
[2017-03-23] MEDS: PANTOPRAZOLE SODIUM 40 MG/VIAL (PROTONIX) IVP SCH (08:33)
[2017-03-23] MEDS: CHOLECALCIFEROL (VITAMIN D3) 2,000 UNIT TABLET PO SCH (08:33)
[2017-03-23] MEDS: DIVALPROEX SODIUM 500 MG TAB.SR.24H (DEPAKOTE ER) PO SCH (08:33)
[2017-03-23] MEDS: SERTRALINE HCL 50 MG TABLET PO SCH (08:34)
[2017-03-23] MEDS: MEMANTINE HCL 5 MG TABLET PO SCH (08:34)
[2017-03-23] MEDS: VITAMIN B COMPLEX 1 CAP/TAB PO SCH (08:34)
[2017-03-23] MEDS: MULTIVITAMINS TAB 1 TABLET PO SCH (08:34)
[2017-03-23] MEDS: VITAMIN E 1,000 UNIT CAPSULE PO SCH (09:00)
[2017-03-23] MEDS: BETA-CAROTENE W-C & E/ZN/CU TABLET PO SCH (09:01)
[2017-03-23] MEDS: OMEGA-3/DHA/EPA/FISH OIL 1 GM CAPSULE PO SCH (09:01)
[2017-03-23] MEDS: POTASSIUM CHLORIDE 40 MEQ in NS 250 ML IV SCH ×2 (11:53→16:06)
[2017-03-23] MEDS ORDERED: FUROSEMIDE 20 MG/2 ML VIAL IVP ONE (13:45)
[2017-03-23 20:35] LABS: CALCIUM 7.2 mg/dL (8.4-11.0); CREATININE 1.96 mg/dL (0.55-1.30); POTASSIUM 3.8 mmol/L (3.5-5.1)
[2017-03-24] VITALS (17 sets, daily range): BP systolic 95–135
[2017-03-24] MEDS: IPRATROPIUM BROM 0.5 MG/2.5 ML VIAL.NEB (ATROVENT) INH SCH ×4 (01:07→19:41)
[2017-03-24] MEDS: ALBUTEROL SULFATE 0.083% 2.5 MG/3 ML VIAL.NEB INH SCH ×4 (01:07→19:41)
[2017-03-24] MEDS: [UNRECOGNIZED DRUG - OTHER] IV SCH (02:48)
[2017-03-24] MEDS: PIPERACILLIN IV SCH (02:48)
[2017-03-24] MEDS: TAZOBACTAM IV SCH (02:48)
[2017-03-24] MEDS: DEXTROSE IV SCH (02:48)
[2017-03-24] MEDS: metroNIDAZOLE 500 mg/NS 100 ML IV SCH ×3 (05:22→23:04)
[2017-03-24] MEDS: KCL 20 mEq in 0.45% NS 1000 mL 1,000 ML IV SCH ×2 (05:22→18:24)
[2017-03-24 06:30] LABS: BASOPHILS % (AUTO) 0.3 % (0.0-2.0); HEMATOCRIT 30.3 % (36-54); HEMOGLOBIN 9.9 g/dL (14.0-18.0); LYMPHOCYTES % (AUTO) 15.3 % (20.5-51.5); MEAN CORPUSCULAR HEMOGLOBIN 29 pg (27-31); MEAN CORPUSCULAR HGB CONC 33 % (32-36); MEAN CORPUSCULAR VOLUME 89 fL (79.0-98.0); MONOCYTES # (AUTO) 1.5 K/uL (0.0-1.0); MONOCYTES % (AUTO) 11.8 % (1.7-9.3); NEUTROPHILS # (AUTO) 9.4 K/uL (1.8-7.7); NEUTROPHILS % (AUTO) 72.6 % (40.0-70.0); PLATELET COUNT (AUTO) 511 K/uL (130-430); RED CELL DISTRIBUTION WIDTH 15.4 % (9.0-15.0); WHITE BLOOD COUNT (AUTO) 12.9 K/uL (4.8-10.8)
[2017-03-24 06:47] LABS: ALBUMIN 1.4 g/dL (3.4-4.8); CALCIUM 7.3 mg/dL (8.4-11.0); CREATININE 1.82 mg/dL (0.55-1.30); PHOSPHORUS 3.5 mg/dL (2.7-4.5); POTASSIUM 3.4 mmol/L (3.5-5.1); TOTAL BILIRUBIN 0.4 mg/dL (0.0-1.0)
[2017-03-24] MEDS: PANTOPRAZOLE SODIUM 40 MG/VIAL (PROTONIX) IVP SCH (08:37)
[2017-03-24] MEDS: CHOLECALCIFEROL (VITAMIN D3) 2,000 UNIT TABLET PO SCH (08:37)
[2017-03-24] MEDS: VITAMIN B COMPLEX 1 CAP/TAB PO SCH (08:38)
[2017-03-24] MEDS: MEMANTINE HCL 5 MG TABLET PO SCH (08:38)
[2017-03-24] MEDS: SERTRALINE HCL 50 MG TABLET PO SCH (08:38)
[2017-03-24] MEDS: DIVALPROEX SODIUM 500 MG TAB.SR.24H (DEPAKOTE ER) PO SCH (08:38)
[2017-03-24] MEDS: MULTIVITAMINS TAB 1 TABLET PO SCH (08:38)
[2017-03-24] MEDS: BETA-CAROTENE W-C & E/ZN/CU TABLET PO SCH (08:38)
[2017-03-24] MEDS: FERROUS SULFATE 325 MG TABLET.DR PO SCH (08:38)
[2017-03-24] MEDS: VITAMIN E 1,000 UNIT CAPSULE PO SCH ×2 (08:42→12:38)
[2017-03-24] MEDS ORDERED: FUROSEMIDE 40 MG/4 ML VIAL IVP ONE (09:15)
[2017-03-24] MEDS ORDERED: POTASSIUM CHLORIDE 20 MEQ TAB.PRT.SR PO ONE (09:15)
[2017-03-24] MEDS: OMEGA-3/DHA/EPA/FISH OIL 1 GM CAPSULE PO SCH (09:30)
[2017-03-24] MEDS: VANCOMYCIN HCL 1,500 MG in NS 250 ML IV SCH (20:38)
[2017-03-25] VITALS (7 sets, daily range): BP systolic 112–135
[2017-03-25] MEDS: IPRATROPIUM BROM 0.5 MG/2.5 ML VIAL.NEB (ATROVENT) INH SCH ×4 (01:10→20:23)
[2017-03-25] MEDS: ALBUTEROL SULFATE 0.083% 2.5 MG/3 ML VIAL.NEB INH SCH ×4 (01:10→20:23)
[2017-03-25] MEDS: KCL 20 mEq in 0.45% NS 1000 mL 1,000 ML IV SCH ×3 (02:02→21:41)
[2017-03-25] MEDS: metroNIDAZOLE 500 mg/NS 100 ML IV SCH ×3 (05:08→21:41)
[2017-03-25 06:16] LABS: BASOPHILS % (AUTO) 0.3 % (0.0-2.0); EOSINOPHILS # (AUTO) 0.1 K/uL (0.0-0.4); EOSINOPHILS % (AUTO) 0.8 % (0.0-4.0); HEMATOCRIT 30.1 % (36-54); HEMOGLOBIN 9.9 g/dL (14.0-18.0); LYMPHOCYTES # (AUTO) 1.8 K/uL (1.0-5.5); LYMPHOCYTES % (AUTO) 19.4 % (20.5-51.5); MEAN CORPUSCULAR HEMOGLOBIN 29 pg (27-31); MEAN CORPUSCULAR HGB CONC 33 % (32-36); MEAN CORPUSCULAR VOLUME 88 fL (79.0-98.0); MONOCYTES % (AUTO) 10.1 % (1.7-9.3); NEUTROPHILS # (AUTO) 6.5 K/uL (1.8-7.7); NEUTROPHILS % (AUTO) 69.4 % (40.0-70.0); PLATELET COUNT (AUTO) 507 K/uL (130-430); RED CELL DISTRIBUTION WIDTH 15.5 % (9.0-15.0); WHITE BLOOD COUNT (AUTO) 9.4 K/uL (4.8-10.8)
[2017-03-25 06:48] LABS: ALBUMIN 1.4 g/dL (3.4-4.8); CALCIUM 7.6 mg/dL (8.4-11.0); CREATININE 1.56 mg/dL (0.55-1.30); POTASSIUM 3.5 mmol/L (3.5-5.1); TOTAL BILIRUBIN 0.4 mg/dL (0.0-1.0)
[2017-03-25] MEDS: OMEGA-3/DHA/EPA/FISH OIL 1 GM CAPSULE PO SCH (09:06)
[2017-03-25] MEDS: CHOLECALCIFEROL (VITAMIN D3) 2,000 UNIT TABLET PO SCH (09:06)
[2017-03-25] MEDS: FERROUS SULFATE 325 MG TABLET.DR PO SCH (09:06)
[2017-03-25] MEDS: SERTRALINE HCL 50 MG TABLET PO SCH (09:07)
[2017-03-25] MEDS: VITAMIN B COMPLEX 1 CAP/TAB PO SCH (09:07)
[2017-03-25] MEDS: PANTOPRAZOLE SODIUM 40 MG/VIAL (PROTONIX) IVP SCH (09:07)
[2017-03-25] MEDS: MEMANTINE HCL 5 MG TABLET PO SCH (09:07)
[2017-03-25] MEDS: MULTIVITAMINS TAB 1 TABLET PO SCH (09:07)
[2017-03-25] MEDS: DIVALPROEX SODIUM 500 MG TAB.SR.24H (DEPAKOTE ER) PO SCH (09:07)
[2017-03-25] MEDS: VITAMIN E 1,000 UNIT CAPSULE PO SCH (09:12)
[2017-03-25] MEDS: BETA-CAROTENE W-C & E/ZN/CU TABLET PO SCH (09:12)
[2017-03-25] MEDS ORDERED: HYDROcodone/ACETAMIN 10-325 MG TAB PO PRN (14:45)
[2017-03-25] MEDS: TAZOBACTAM IV SCH ×2 (14:59→22:51)
[2017-03-25] MEDS: [UNRECOGNIZED DRUG - OTHER] IV SCH ×2 (14:59→22:51)
[2017-03-25] MEDS: PIPERACILLIN IV SCH ×2 (14:59→22:51)
[2017-03-25] MEDS: DEXTROSE IV SCH ×2 (14:59→22:51)
[2017-03-25] MEDS: VANCOMYCIN HCL 1,500 MG in NS 250 ML IV SCH (19:45)
[2017-03-26] VITALS (8 sets, daily range): BP systolic 107–136
[2017-03-26] MEDS: ALBUTEROL SULFATE 0.083% 2.5 MG/3 ML VIAL.NEB INH SCH ×3 (01:43→13:00)
[2017-03-26] MEDS: IPRATROPIUM BROM 0.5 MG/2.5 ML VIAL.NEB (ATROVENT) INH SCH ×3 (01:43→13:00)
[2017-03-26] MEDS: metroNIDAZOLE 500 mg/NS 100 ML IV SCH ×3 (05:06→22:05)
[2017-03-26] MEDS: PIPERACILLIN IV SCH ×3 (06:17→22:06)
[2017-03-26] MEDS: [UNRECOGNIZED DRUG - OTHER] IV SCH ×3 (06:17→22:06)
[2017-03-26] MEDS: DEXTROSE IV SCH ×3 (06:17→22:06)
[2017-03-26] MEDS: TAZOBACTAM IV SCH ×3 (06:17→22:06)
[2017-03-26 06:24] LABS: BASOPHILS % (AUTO) 0.4 % (0.0-2.0); EOSINOPHILS # (AUTO) 0.1 K/uL (0.0-0.4); EOSINOPHILS % (AUTO) 1.8 % (0.0-4.0); HEMATOCRIT 29.4 % (36-54); HEMOGLOBIN 9.9 g/dL (14.0-18.0); LYMPHOCYTES # (AUTO) 1.5 K/uL (1.0-5.5); LYMPHOCYTES % (AUTO) 20.4 % (20.5-51.5); MEAN CORPUSCULAR HEMOGLOBIN 29 pg (27-31); MEAN CORPUSCULAR HGB CONC 34 % (32-36); MEAN CORPUSCULAR VOLUME 87 fL (79.0-98.0); MONOCYTES # (AUTO) 0.7 K/uL (0.0-1.0); MONOCYTES % (AUTO) 9.5 % (1.7-9.3); NEUTROPHILS # (AUTO) 5.3 K/uL (1.8-7.7); NEUTROPHILS % (AUTO) 67.9 % (40.0-70.0); PLATELET COUNT (AUTO) 481 K/uL (130-430); RED BLOOD CELL COUNT(AUTO) 3.37 MIL/uL (4.2-6.2); RED CELL DISTRIBUTION WIDTH 15.4 % (9.0-15.0); WHITE BLOOD COUNT (AUTO) 7.6 K/uL (4.8-10.8)
[2017-03-26 06:50] LABS: ALBUMIN 1.4 g/dL (3.4-4.8); CALCIUM 7.5 mg/dL (8.4-11.0); CREATININE 1.51 mg/dL (0.55-1.30); POTASSIUM 3.5 mmol/L (3.5-5.1); TOTAL BILIRUBIN 0.4 mg/dL (0.0-1.0)
[2017-03-26] MEDS: KCL 20 mEq in 0.45% NS 1000 mL 1,000 ML IV SCH ×2 (08:00→13:56)
[2017-03-26] MEDS: FERROUS SULFATE 325 MG TABLET.DR PO SCH (08:48)
[2017-03-26] MEDS: MULTIVITAMINS TAB 1 TABLET PO SCH (08:48)
[2017-03-26] MEDS: CHOLECALCIFEROL (VITAMIN D3) 2,000 UNIT TABLET PO SCH (08:48)
[2017-03-26] MEDS: MEMANTINE HCL 5 MG TABLET PO SCH (08:48)
[2017-03-26] MEDS: OMEGA-3/DHA/EPA/FISH OIL 1 GM CAPSULE PO SCH (08:48)
[2017-03-26] MEDS: VITAMIN B COMPLEX 1 CAP/TAB PO SCH (08:48)
[2017-03-26] MEDS: PANTOPRAZOLE SODIUM 40 MG/VIAL (PROTONIX) IVP SCH (08:49)
[2017-03-26] MEDS: SERTRALINE HCL 50 MG TABLET PO SCH (08:49)
[2017-03-26] MEDS: DIVALPROEX SODIUM 500 MG TAB.SR.24H (DEPAKOTE ER) PO SCH (08:49)
[2017-03-26] MEDS: VITAMIN E 1,000 UNIT CAPSULE PO SCH (09:00)
[2017-03-26] MEDS: BETA-CAROTENE W-C & E/ZN/CU TABLET PO SCH (11:41)
[2017-03-26] MEDS ORDERED: FUROSEMIDE 40 MG/4 ML VIAL IVP ONE (16:00)
[2017-03-26] MEDS ORDERED: POTASSIUM CHLORIDE 20 MEQ TAB.PRT.SR PO ONE (16:00)
[2017-03-26] MEDS: 0.45% NACL 1,000 ML IV SCH (16:45)
[2017-03-26] MEDS: VANCOMYCIN HCL 1,500 MG in NS 250 ML IV SCH (21:15)
[2017-03-27] MEDS: IPRATROPIUM BROM 0.5 MG/2.5 ML VIAL.NEB (ATROVENT) INH SCH ×4 (01:00→20:10)
[2017-03-27] MEDS: ALBUTEROL SULFATE 0.083% 2.5 MG/3 ML VIAL.NEB INH SCH ×4 (01:00→20:10)
[2017-03-27] MEDS: 0.45% NACL 1,000 ML IV SCH ×2 (03:45→20:33)
[2017-03-27 04:47] VITALS: BP_SYST 123
[2017-03-27 05:36] LABS: BASOPHILS % (AUTO) 0.5 % (0.0-2.0); EOSINOPHILS # (AUTO) 0.2 K/uL (0.0-0.4); EOSINOPHILS % (AUTO) 2.2 % (0.0-4.0); HEMATOCRIT 31.9 % (36-54); HEMOGLOBIN 10.4 g/dL (14.0-18.0); LYMPHOCYTES # (AUTO) 1.8 K/uL (1.0-5.5); LYMPHOCYTES % (AUTO) 25.4 % (20.5-51.5); MEAN CORPUSCULAR HEMOGLOBIN 29 pg (27-31); MEAN CORPUSCULAR HGB CONC 33 % (32-36); MEAN CORPUSCULAR VOLUME 89 fL (79.0-98.0); MONOCYTES # (AUTO) 0.8 K/uL (0.0-1.0); MONOCYTES % (AUTO) 11.2 % (1.7-9.3); NEUTROPHILS # (AUTO) 4.4 K/uL (1.8-7.7); NEUTROPHILS % (AUTO) 60.7 % (40.0-70.0); PLATELET COUNT (AUTO) 479 K/uL (130-430); WHITE BLOOD COUNT (AUTO) 7.2 K/uL (4.8-10.8)
[2017-03-27 05:44] LABS: CALCIUM 8.3 mg/dL (8.4-11.0); CREATININE 1.56 mg/dL (0.55-1.30); POTASSIUM 3.8 mmol/L (3.5-5.1)
[2017-03-27] MEDS: metroNIDAZOLE 500 mg/NS 100 ML IV SCH ×2 (06:14→14:28)
[2017-03-27] MEDS: DEXTROSE IV SCH ×3 (06:15→22:50)
[2017-03-27] MEDS: TAZOBACTAM IV SCH ×3 (06:15→22:50)
[2017-03-27] MEDS: [UNRECOGNIZED DRUG - OTHER] IV SCH ×3 (06:15→22:50)
[2017-03-27] MEDS: PIPERACILLIN IV SCH ×3 (06:15→22:50)
[2017-03-27 08:00] VITALS: BP_SYST 126
[2017-03-27] MEDS: FERROUS SULFATE 325 MG TABLET.DR PO SCH (08:36)
[2017-03-27] MEDS: MEMANTINE HCL 5 MG TABLET PO SCH (08:36)
[2017-03-27] MEDS: CHOLECALCIFEROL (VITAMIN D3) 2,000 UNIT TABLET PO SCH (08:36)
[2017-03-27] MEDS: SERTRALINE HCL 50 MG TABLET PO SCH (08:36)
[2017-03-27] MEDS: DIVALPROEX SODIUM 500 MG TAB.SR.24H (DEPAKOTE ER) PO SCH (08:36)
[2017-03-27] MEDS: OMEGA-3/DHA/EPA/FISH OIL 1 GM CAPSULE PO SCH (08:36)
[2017-03-27] MEDS: VITAMIN B COMPLEX 1 CAP/TAB PO SCH (08:36)
[2017-03-27] MEDS: BETA-CAROTENE W-C & E/ZN/CU TABLET PO SCH (08:36)
[2017-03-27] MEDS: MULTIVITAMINS TAB 1 TABLET PO SCH (08:36)
[2017-03-27] MEDS: PANTOPRAZOLE SODIUM 40 MG/VIAL (PROTONIX) IVP SCH (08:37)
[2017-03-27] MEDS: VITAMIN E 1,000 UNIT CAPSULE PO SCH (09:00)
[2017-03-27 12:43] VITALS: BP_SYST 117
[2017-03-27 16:12] VITALS: BP_SYST 133
[2017-03-27 20:00] VITALS: BP_SYST 123
[2017-03-27] MEDS: VANCOMYCIN HCL 1,250 MG in NS 250 ML IV SCH (20:32)
[2017-03-27] MEDS ORDERED: TEMAZEPAM 15 MG CAPSULE PO SCH (22:00)
[2017-03-28] VITALS (7 sets, daily range): BP systolic 109–130
[2017-03-28] MEDS: IPRATROPIUM BROM 0.5 MG/2.5 ML VIAL.NEB (ATROVENT) INH SCH ×4 (01:40→19:41)
[2017-03-28] MEDS: ALBUTEROL SULFATE 0.083% 2.5 MG/3 ML VIAL.NEB INH SCH ×4 (01:40→19:41)
[2017-03-28] MEDS: TAZOBACTAM IV SCH ×3 (05:26→21:51)
[2017-03-28] MEDS: [UNRECOGNIZED DRUG - OTHER] IV SCH ×3 (05:26→21:51)
[2017-03-28] MEDS: PIPERACILLIN IV SCH ×3 (05:26→21:51)
[2017-03-28] MEDS: DEXTROSE IV SCH ×3 (05:26→21:51)
[2017-03-28] MEDS: MULTIVITAMINS TAB 1 TABLET PO SCH (09:05)
[2017-03-28] MEDS: CHOLECALCIFEROL (VITAMIN D3) 2,000 UNIT TABLET PO SCH (09:05)
[2017-03-28] MEDS: VITAMIN B COMPLEX 1 CAP/TAB PO SCH (09:05)
[2017-03-28] MEDS: OMEGA-3/DHA/EPA/FISH OIL 1 GM CAPSULE PO SCH (09:06)
[2017-03-28] MEDS: DIVALPROEX SODIUM 500 MG TAB.SR.24H (DEPAKOTE ER) PO SCH (09:06)
[2017-03-28] MEDS: FERROUS SULFATE 325 MG TABLET.DR PO SCH (09:06)
[2017-03-28] MEDS: SERTRALINE HCL 50 MG TABLET PO SCH (09:06)
[2017-03-28] MEDS: BETA-CAROTENE W-C & E/ZN/CU TABLET PO SCH (09:06)
[2017-03-28] MEDS: MEMANTINE HCL 5 MG TABLET PO SCH (09:06)
[2017-03-28] MEDS: VITAMIN E 1,000 UNIT CAPSULE PO SCH (09:07)
[2017-03-28] MEDS: PANTOPRAZOLE SODIUM 40 MG/VIAL (PROTONIX) IVP SCH (09:07)
[2017-03-28] MEDS: 0.45% NACL 1,000 ML IV SCH (12:29)
[2017-03-28] MEDS: VANCOMYCIN HCL 1,250 MG in NS 250 ML IV SCH (20:16)
[2017-03-28] MEDS ORDERED: TEMAZEPAM 15 MG CAPSULE PO SCH (21:00)
[2017-03-28] MEDS ORDERED: metroNIDAZOLE 500 mg/NS 200 ML IV ONE (21:58)
[2017-03-28] MEDS: metroNIDAZOLE 500 mg/NS 100 ML IV SCH (22:00)
[2017-03-29 00:33] VITALS: BP_SYST 117
[2017-03-29] MEDS: ALBUTEROL SULFATE 0.083% 2.5 MG/3 ML VIAL.NEB INH SCH ×3 (01:00→13:28)
[2017-03-29] MEDS: IPRATROPIUM BROM 0.5 MG/2.5 ML VIAL.NEB (ATROVENT) INH SCH ×3 (01:00→13:28)
[2017-03-29 04:38] VITALS: BP_SYST 118
[2017-03-29] MEDS: metroNIDAZOLE 500 mg/NS 100 ML IV SCH ×2 (05:11→13:16)
[2017-03-29] MEDS: 0.45% NACL 1,000 ML IV SCH ×2 (05:18→08:26)
[2017-03-29] MEDS: [UNRECOGNIZED DRUG - OTHER] IV SCH ×2 (06:39→13:17)
[2017-03-29] MEDS: DEXTROSE IV SCH ×2 (06:39→13:17)
[2017-03-29] MEDS: TAZOBACTAM IV SCH ×2 (06:39→13:17)
[2017-03-29] MEDS: PIPERACILLIN IV SCH ×2 (06:39→13:17)
[2017-03-29 08:25] VITALS: BP_SYST 123
[2017-03-29] MEDS: OMEGA-3/DHA/EPA/FISH OIL 1 GM CAPSULE PO SCH (08:32)
[2017-03-29] MEDS: MEMANTINE HCL 5 MG TABLET PO SCH (08:32)
[2017-03-29] MEDS: DIVALPROEX SODIUM 500 MG TAB.SR.24H (DEPAKOTE ER) PO SCH (08:32)
[2017-03-29] MEDS: BETA-CAROTENE W-C & E/ZN/CU TABLET PO SCH (08:32)
[2017-03-29] MEDS: CHOLECALCIFEROL (VITAMIN D3) 2,000 UNIT TABLET PO SCH (08:32)
[2017-03-29] MEDS: PANTOPRAZOLE SODIUM 40 MG/VIAL (PROTONIX) IVP SCH (08:32)
[2017-03-29] MEDS: VITAMIN B COMPLEX 1 CAP/TAB PO SCH (08:33)
[2017-03-29] MEDS: FERROUS SULFATE 325 MG TABLET.DR PO SCH (08:33)
[2017-03-29] MEDS: MULTIVITAMINS TAB 1 TABLET PO SCH (08:33)
[2017-03-29] MEDS: SERTRALINE HCL 50 MG TABLET PO SCH (08:33)
[2017-03-29] MEDS: VITAMIN E 1,000 UNIT CAPSULE PO SCH (08:33)
[2017-03-29 12:34] VITALS: BP_SYST 117
[2017-03-29 16:10] VITALS: BP_SYST 122
[2017-03-29 16:38] VITALS: BP_SYST 114
== END 2017-03-29 19:47 | DRG 163 ==
LOC: SMU 17:38 → SIC 03-22 16:06 → STU 03-24 14:10 → SMU 03-28 19:42
PROVIDERS: ADMIT Internal Medicine Infectious Disease; ATTEND Family Medicine
PROC: 0W9940Z Drainage of Right Pleural Cavity with Drainage Device, Percutaneous Endoscopic Approach (ICD-10-PCS; 2017-03-22)
PROC: 0BNK0ZZ Release Right Lung, Open Approach (ICD-10-PCS; principal; 2017-03-22 11:30)
PROC: 5A09357 Assistance with Respiratory Ventilation, Less than 24 Consecutive Hours, Continuous Positive Airway Pressure (ICD-10-PCS; 2017-03-23)
DX: J86.9 Pyothorax without fistula (principal); J18.9 Pneumonia, unspecified organism; N17.0 Acute kidney failure with tubular necrosis; J96.90 Respiratory failure, unspecified, unspecified whether with hypoxia or hypercapnia; E46 Unspecified protein-calorie malnutrition; D64.9 Anemia, unspecified; F03.90 Unspecified dementia, unspecified severity, without behavioral disturbance, psychotic disturbance, mood disturbance, and anxiety; G62.9 Polyneuropathy, unspecified; J90 Pleural effusion, not elsewhere classified; J44.0 Chronic obstructive pulmonary disease with (acute) lower respiratory infection; I89.0 Lymphedema, not elsewhere classified; F31.9 Bipolar disorder, unspecified; I10 Essential (primary) hypertension; E66.01 Morbid (severe) obesity due to excess calories; E04.2 Nontoxic multinodular goiter; E61.1 Iron deficiency; G40.909 Epilepsy, unspecified, not intractable, without status epilepticus; G89.4 Chronic pain syndrome; M54.9 Dorsalgia, unspecified; K21.9 Gastro-esophageal reflux disease without esophagitis; K44.9 Diaphragmatic hernia without obstruction or gangrene; M81.0 Age-related osteoporosis without current pathological fracture; Z68.33 Body mass index [BMI] 33.0-33.9, adult; E87.6 Hypokalemia; E86.0 Dehydration; F41.9 Anxiety disorder, unspecified; Z90.49 Acquired absence of other specified parts of digestive tract; Z98.84 Bariatric surgery status
CPT/HCPCS: 36415; 36600; 71010; 71260-TC; 76604; 76700-TC; 80048; 80053; 80164-TC; 80202-TC; 81003; 82803-TC; 83735-TC; 83880; 84100-TC; 84439; 84443-TC; 85007; 85025; 85027; 85610-TC; 86886; 86900; 86901; 87040-TC; 87070; 87070-TC; 87075-TC; 87081; 87101; 87116; 87205-TC; 88108; 88305; 93005; 94002; 94003; 94640; 94760; 97110-GP; 97116-GP; 97530-GP; C1727; C9113; C9290; J1940; J2060; J2250; J2270; J2405; J2543; J2704; J2710; J3010; J3370; J3480; J3490; J7050; J7060; J7120; Q9967